=== PATIENT | male | born 1970 | race Asian ===

== ENCOUNTER 2019-10-17 18:29 | Emergency (ER) | payer SELFPAY ==
--- OUTSIDE RECORDS SUMMARY | 2019-10-17 19:46 | XMS REPORT | Continuity of Care Document ---
:1970 Author Organization [employer] Care Team Providers Name Role Phone [employer] Unavailable Un available Problems Problem Status Onset Classification Date Comments Sourc e Date Reported Gastritis Active Problem 08/18/2018 [facility] Mixed Active Problem 08/18/2018 [facility] Family hyperlipidemia Med Hyperlipidemia, Active Diagnosis 08/18/2018 [facility] Family unspecified Med hyperlipidemia type Routine general Active Diagnosis 08/10/2018 [facility] Family medical Med examination at a health care facility Skin rash Active Diagnosis 10/27/2017 [facility] Rectal prolapse Active Diagnosis 10/20/2017 [facility] Sensation of Active Diagnosis 03/23/2018 J[facility] Fam pritesh foreign body in Med esophagus Needs flu shot Active Diagnosis 03/23/2018 JY F amily Med Elevated glucose Active Diagnosis 08/10/2018 [facility] Screening for Active Diagnosis 08/10/2018 JY Fa hanane depression Med Medications Medication Details Route Status Patient Ordering Order Source Instructions Provider Date Fluocinonide as directed Externally Active 0.05 % Gu JY Externally 018 Family twice a day Med (bid) Allergies, Adverse Reactions, Alerts Substance Category Reaction Severity Reaction Status Date Comments S ource type Reported N.K.D.A. Adverse Info Not Adverse Active JY Reaction Available Reaction 9 Fami ly Med Immunizations Immunization Date Given Site Status Last Updated Comments Tiffanie rce Flucelvax 03/22/2018 completed [facility] Results No Data Provided for This Section Pathology Reports No Data Provided for This Section Diagnostic Reports No Data Provided for This Section Consultation Notes No Data Provided for This Section Discharge Summaries No Data Provided for This Section History and Physicals No Data Provided for This Section Vital Signs Vital Sign Value Date Comments Source Weight 142 08/09/2018 [facility] Height 66.4 08/09/2018 [facility] Heart Rate 67 08/09/2018 [facility] Diastolic (mm Hg) 70 08/09/2018 [facility] Systolic (mm Hg) 105 08/09/2018 [facility] Family M ed Weight 139.6 03/22/2018 [facility] Height 66.4 03/22/2018 [facility] Heart Rate 59 03/22/2018 [facility] Diastolic (mm Hg) 70 03/22/2018 [facility] Systolic (mm Hg) 110 03/22/2018 [facility] Family M ed Weight 144 10/26/2017 [facility] Height 66.4 10/26/2017 [facility] Heart Rate 70 10/26/2017 [facility] Diastolic (mm Hg) 70 10/26/2017 [facility] Systolic (mm Hg) 120 10/26/2017 [facility] Family M ed Weight 144.5 10/19/2017 [facility] Height 66.4 10/19/2017 [facility] Heart Rate 68 10/19/2017 [facility] Diastolic (mm Hg) 69 10/19/2017 [facility] Systolic (mm Hg) 110 10/19/2017 [facility] ed Encounters No Data Provided for This Section Procedures No Data Provided for This Section Assessment and Plan No Data Provided for This Section Plan of Care No Data Provided for This Section Social History No Data Provided for This Section Family History No Data Provided for This Section Advance Directives No Data Provided for This Section Functional Status No Data Provided for This Section
[2019-10-17] MEDS ORDERED: TETANUS & DIPHTHERIA TOX,ADULT 0.5 ML VIAL ONE (21:16)
[2019-10-17] MEDS ORDERED: LIDOCAINE 1% MPF 5 ML VIAL ONE ×2 (21:29→21:41)
--- NOTE | 2019-10-17 22:02 | ER ---
Nurse's Notes [facility] Name: Chata Loyola Age: 48 yrs Sex: Male : 1970 Arrival Date: 10/17/2019 Time: 18:33 Bed 8 Private MD: Diagnosis: Fish hook in left forearm ( Removed ) Presentation: 10/16 18:49 Chief complaint: Patient states: Left arm fish hook near antecubital area. Coronavirus ll1 screen: Proceed with normal triage. Patient denies a cough. Patient denies shortness of breath or difficulty breathing. Patient denies measured and/or subjective temperature greater than 100.4F prior to today's visit. Patient denies travel on a cruise ship or to a country the [facility] currently lists as an affected area. Patient denies contact with known and/or suspected case of COVID-19. Ebola Screen: Patient denies travel to an Ebola-affected area in the 21 days before illness onset. Initial Sepsis Screen: Does the patient meet any 2 criteria? No. Patient's initial sepsis screen is negative. Risk Assessment: Do you want to hurt yourself or someone else? Patient reports no desire to harm self or others. Onset of symptoms was October 17, 2019. 18:49 Method Of Arrival: Ambulatory ll1 18:49 Acuity: JULIANN 4 ll1 21:15 Initial Sepsis Screen: Does the patient have a suspected source of infection? No. rv Patient's initial sepsis screen is negative. Historical: - Allergies: 18:51 PENICILLINS; ll1 - PSHx: 18:51 None; ll1 - Immunization history:: Last tetanus immunization: unknown. - Social history:: Smoking status: Patient denies any tobacco usage or history of. Patient uses alcohol, only on a social basis. Patient/guardian denies using street drugs. Screenin:15 Abuse screen: Denies threats or abuse. Denies injuries from another. Nutritional rv screening: No deficits noted. Tuberculosis screening: No symptoms or risk factors identified. Fall Risk None identified. Assessment: 21:12 General: Appears comfortable, Behavior is calm, cooperative. Pain: Complains of pain in rv left arm. Neuro: Level of Consciousness is awake, alert, obeys commands, Oriented to person, place, time, situation. Cardiovascular: Patient's skin is warm and dry. Respiratory: Airway is patent. Derm: Skin is intact. Injury Description: Puncture sustained to left arm is fish hook left lower arm, distal to the elbow, tip of the hook is not visible on the outside. no bleeding noted. Vital Signs: 18:49 BP 127 / 94; Pulse 67; Resp 18; Temp 98.0; Pulse Ox 99% ; Pain 5/10; ll1 ED Course: 18:33 Patient arrived in ED. fj1 18:50 Triage completed. ll1 18:51 Arm band placed on Patient notified of wait time. ll1 21:04 Truman Padron, RN is Primary Nurse. rv 21:12 Saji Awad MD is Attending Physician. pkl 21:15 Patient has correct armband on for positive identification. Pulse ox on. NIBP on. rv 21:54 Assist provider with foreign body removal of a fish hook from left forearm Set up for rv procedure. Performed by Saji Awad MD Dressed with band aid Patient tolerated well. Patient did not have IV access during this emergency room visit. Administered Medications: 21:30 Drug: Tetanus-Diphtheria Toxoid Adult 0.5 ml {F[employer] Pilot: [employer]. Exp: rv 07/01/2021. Lot #: [id number]. } Route: IM; Site: right deltoid; 21:54 Follow up: Response: No adverse reaction rv 21:53 Drug: Lidocaine (1 %) 5 mg {Note: administered by Dr Awad..} Route: Infiltration; rv 21:54 Follow up: Response: No adverse reaction rv Outcome: 21:55 Discharged to home ambulatory. rv 21:55 Condition: good 21:55 Discharge instructions given to patient, family, Instructed on discharge instructions, follow up and referral plans. medication usage, wound care, Demonstrated understanding of instructions, follow-up care, medications. 22:01 Discharge ordered by . pkl 22:06 Demonstrated understanding of wound care. rv 22:06 Patient left the ED. rv Signatures: Saji Awad MD MD pkl Vicente, Ronaldo, RN RN Anthony Resendiz 1 Carla Greene RN RN ll1 Corrections: (The following items were deleted from the chart) 22:06 21:55 Discharge instructions given to patient, family, Instructed on discharge rv instructions, follow up and referral plans. medication usage, wound care, Demonstrated understanding of instructions, follow-up care, medications, Prescriptions given X 1, rv
--- NOTE | 2019-10-17 22:03 | EDPHYS ---
Physician Documentation [facility] Name: Chata Loyola Age: 48 yrs Sex: Male : 1970 Arrival Date: 10/17/2019 Time: 18:33 Bed 8 Private MD: ED Physician Saji Awad HPI: 10/16 21:52 This 48 yrs old Male presents to ER via Ambulatory with complaints of Foreign pkl Body In Arm. 21:52 The patient or guardian complains of Fish hook embedded in left forearm. Onset: The pkl symptoms/episode began/occurred just prior to arrival. Historical: - Allergies: 18:51 PENICILLINS; ll1 - PSHx: 18:51 None; ll1 - Immunization history:: Last tetanus immunization: unknown. - Social history:: Smoking status: Patient denies any tobacco usage or history of. Patient uses alcohol, only on a social basis. Patient/guardian denies using street drugs. ROS: 21:52 Eyes: Negative for injury, pain, redness, and discharge, ENT: Negative for injury, pkl pain, and discharge, Neck: Negative for injury, pain, and swelling, Cardiovascular: Negative for chest pain, palpitations, and edema, Respiratory: Negative for shortness of breath, cough, wheezing, and pleuritic chest pain, Abdomen/GI: Negative for abdominal pain, nausea, vomiting, diarrhea, and constipation, Back: Negative for injury and pain, : Negative for injury, bleeding, discharge, and swelling, Neuro: Negative for headache, weakness, numbness, tingling, and seizure. 21:52 MS/extremity: Positive for Fish hook embedded in left forearm. Exam: 21:52 Head/Face: Normocephalic, atraumatic. Eyes: Pupils equal round and reactive to light, pkl extra-ocular motions intact. Lids and lashes normal. Conjunctiva and sclera are non-icteric and not injected. Cornea within normal limits. Periorbital areas with no swelling, redness, or edema. ENT: Nares patent. No nasal discharge, no septal abnormalities noted. Tympanic membranes are normal and external auditory canals are clear. Oropharynx with no redness, swelling, or masses, exudates, or evidence of obstruction, uvula midline. Mucous membranes moist. Neck: Trachea midline, no thyromegaly or masses palpated, and no cervical lymphadenopathy. Supple, full range of motion without nuchal rigidity, or vertebral point tenderness. No Meningismus. Chest/axilla: Normal chest wall appearance and motion. Nontender with no deformity. No lesions are appreciated. Cardiovascular: Regular rate and rhythm with a normal S1 and S2. No gallops, murmurs, or rubs. Normal PMI, no JVD. No pulse deficits. Respiratory: Lungs have equal breath sounds bilaterally, clear to auscultation and percussion. No rales, rhonchi or wheezes noted. No increased work of breathing, no retractions or nasal flaring. Abdomen/GI: Soft, non-tender, with normal bowel sounds. No distension or tympany. No guarding or rebound. No evidence of tenderness throughout. Back: No spinal tenderness. No costovertebral tenderness. Full range of motion. Skin: Warm, dry with normal turgor. Normal color with no rashes, no lesions, and no evidence of cellulitis. Neuro: Awake and alert, GCS 15, oriented to person, place, time, and situation. Cranial nerves II-XII grossly intact. Motor strength 5/5 in all extremities. Sensory grossly intact. Cerebellar exam normal. Normal gait. 21:52 Musculoskeletal/extremity: Extremities: grossly normal except: noted in the left forearm.: fish hook embedded in left forearm. Vital Signs: 18:49 BP 127 / 94; Pulse 67; Resp 18; Temp 98.0; Pulse Ox 99% ; Pain 5/10; ll1 Procedures: 21:52 Moderate sedation: Fish hook removed from left forearm with local anesthesia ( 1% pkl Lidocaine ) Wound closed with 4 - 0 Prolene ( 1 suture ). MDM: 21:12 Patient medically screened. pkl 21:52 Data reviewed: vital signs, nurses notes. pkl Administered Medications: 21:30 Drug: Tetanus-Diphtheria Toxoid Adult 0.5 ml {Senior Software [employer]: [employer]. Exp: rv 07/01/2021. Lot #: [id number]. } Route: IM; Site: right deltoid; 21:54 Follow up: Response: No adverse reaction rv 21:53 Drug: Lidocaine (1 %) 5 mg {Note: administered by Dr Adair.} Route: Infiltration; rv 21:54 Follow up: Response: No adverse reaction rv Disposition: 10/17/19 22:01 Discharged to Home. Impression: Fish hook in left forearm ( Removed ). - Condition is Stable. - Medication Reconciliation Form, Thank You Letter, Antibiotic Education, Prescription Opioid Use form. - Follow up: Private Physician; When: 5 - 6 days; Reason: Wound Recheck, Staple/Suture removal, Re-evaluation by your physician. Signatures: Saji Awad MD MD pkl Truman Padron RN RN rv Carla Greene RN RN ll1 Corrections: (The following items were deleted from the chart) 22:06 22:01 10/17/2019 22:01 Discharged to Home. Impression: Fish hook in left forearm ( rv Removed ). Condition is Stable. Forms are Medication Reconciliation Form, Thank You Letter, Antibiotic Education, Prescription Opioid Use. Follow up: Private Physician; When: 5 - 6 days; Reason: Wound Recheck, Staple/Suture removal, Re-evaluation by your physician. pkl
[2019-10-17 22:21] VITALS: BP 127/94; TEMP 98; O2SAT 99
== END 2019-10-17 22:06 | disposition home or self-care (01) ==
LOC: ER 18:29
DX: S51.842A Puncture wound with foreign body of left forearm, initial encounter (principal); Z23 Encounter for immunization; Z88.0 Allergy status to penicillin
CPT/HCPCS: 90471; 90714; 99283